=== PATIENT | female | born 2000 | race Caucasian/White ===

== ENCOUNTER 2023-12-05 16:18 | Inpatient (IN) | payer OTHER ==
[2023-12-05 17:24] VITALS: BMI 27.7
[2023-12-05] MEDS ORDERED: chlordiazePOXIDE HCL 25 MG CAPSULE PO PRN (17:43)
[2023-12-05] MEDS ORDERED: BENZONATATE 200 MG CAPSULE PO PRN (17:48)
[2023-12-05] MEDS ORDERED: IBUPROFEN 400 MG TABLET (FP) PO PRN (17:48)
[2023-12-05] MEDS ORDERED: guaiFENesin 600 MG TABLET.ER (FP) PO PRN (17:48)
[2023-12-05] MEDS ORDERED: hydrOXYzine PAMOATE 25 MG CAPSULE (FP) PO PRN (17:48)
[2023-12-05] MEDS ORDERED: POLYETHYLENE GLYCOL (HEALTHYLAX) 3350 17 GM PACKET PO PRN (17:48)
[2023-12-05] MEDS ORDERED: MAG HYDROX/AL HYDROX/SIMETH 30 ML UNIT-DOSE CUP PO PRN (17:48)
[2023-12-05] MEDS ORDERED: BISMUTH SUBSALICYLATE 524 MG/30 ML PO PRN (17:48)
[2023-12-05] MEDS ORDERED: IBUPROFEN 600 MG TABLET (FP) PO PRN (17:48)
[2023-12-05] MEDS ORDERED: MAGNESIUM HYDROX 2400MG/30ML ORAL SUSPENSION 30 ML CUP PO PRN (17:48)
[2023-12-05] MEDS ORDERED: LOPERAMIDE HCL 2 MG CAPSULE PO PRN (17:48)
[2023-12-05] MEDS ORDERED: DICYCLOMINE HCL 10 MG CAPSULE PO PRN (17:48)
[2023-12-05] MEDS ORDERED: BENZOCAINE/MENTHOL (CHLORASEPTIC ) LOZENGE MM PRN (17:48)
[2023-12-05] MEDS ORDERED: chlordiazePOXIDE HCL 25 MG CAPSULE ONE (18:22)
[2023-12-05] MEDS: chlordiazePOXIDE HCL 25 MG CAPSULE PO SCH (18:26)
[2023-12-05] MEDS: ONDANSETRON *ODT* 4 MG TABLET SL PRN (20:14)
[2023-12-05] MEDS: THIAMINE 100 MG TABLET PO SCH (22:26)
[2023-12-05] MEDS: MELATONIN 5 MG TABLETS PO SCH (22:26)
[2023-12-06] MEDS: PRENATAL VITAMINS W/ FOLIC ACID TABLET (FP) PO SCH (10:12)
[2023-12-06 11:49] LABS: POTASSIUM 3.9 mmol/L (3.5-5.1)
[2023-12-06 11:54] LABS: HEMATOCRIT 34.2 % (32.4-45.2); HEMOGLOBIN 11.4 GM/dL (10.7-15.3); MCH 30.1 pg (25.7-33.7); MCHC 33.2 g/dl (32.0-36.0); MEAN CELL VOLUME 90.6 fl (80-96); MEAN PLT VOLUME 7.4 fl (7.5-11.1); PLATELET COUNT 381 10^3/uL (134-434); RBC 3.78 M/mm3 (3.60-5.2); RDW 13.8 % (11.6-15.6); WHITE BLOOD COUNT 4.9 K/mm3 (4.0-10.0)
[2023-12-06 11:55] LABS: BLOOD UREA NITROGEN 7.4 mg/dL (7-18); CALCIUM 9.1 mg/dL (8.5-10.1)
[2023-12-06 11:56] LABS: ALBUMIN 3.4 g/dl (3.4-5.0); BILIRUBIN,TOTAL 0.6 mg/dL (0.2-1); TOT PROT 6.4 g/dl (6.4-8.2)
[2023-12-06 11:59] LABS: CREATININE 0.7 mg/dL (0.55-1.3)
[2023-12-06] MEDS: ACAMPROSATE CALCIUM 333 MG TABLET.DR PO SCH (14:31)
[2023-12-06] MEDS: ACETAMINOPHEN 325 MG TABLET (FP) PO PRN (21:26)
[2023-12-06] MEDS: METHOCARBAMOL 500 MG TABLET PO PRN (22:54)
[2023-12-07] MEDS: chlordiazePOXIDE HCL 25 MG CAPSULE PO SCH (05:45)
[2023-12-07] MEDS ORDERED: chlordiazePOXIDE HCL 10 MG CAPSULE PO PRN (09:14)
[2023-12-07] MEDS: SERTRALINE HCL 50 MG TABLET (FP) PO SCH (12:24)
[2023-12-07] MEDS: chlordiazePOXIDE HCL 10 MG CAPSULE PO SCH (17:40)
[2023-12-08] MEDS ORDERED: chlordiazePOXIDE HCL 10 MG CAPSULE PO PRN
[2023-12-08] MEDS: chlordiazePOXIDE HCL 10 MG CAPSULE PO SCH (06:14)
[2023-12-08 09:56] VITALS: RESP 16
[2023-12-08] MEDS: chlordiazePOXIDE 5 MG CAPSULE PO SCH (17:18)
[2023-12-08 18:03] VITALS: BP 118/67; PULSE 75; TEMP 97.1
[2023-12-09] MEDS ORDERED: chlordiazePOXIDE HCL 10 MG CAPSULE PO SCH (05:00)
[2023-12-10] MEDS ORDERED: chlordiazePOXIDE HCL 10 MG CAPSULE PO ONE (05:00)
== END 2023-12-08 18:14 | disposition home or self-care (01) | DRG 775 ==
LOC: YASAS 16:18 → Y6N 18:07
PROVIDERS: ADMIT Allergy & Immunology; ATTEND Surgery
PROC: HZ2ZZZZ Detoxification Services for Substance Abuse Treatment (ICD-10-PCS; principal; 2023-12-05)
DX: F10.230 Alcohol dependence with withdrawal, uncomplicated (principal); F33.1 Major depressive disorder, recurrent, moderate; F10.280 Alcohol dependence with alcohol-induced anxiety disorder; F10.24 Alcohol dependence with alcohol-induced mood disorder; Z62.810 Personal history of physical and sexual abuse in childhood
CPT/HCPCS: 36415; 80053; 80305; 80307; 85027; 86780; 93005; 93010; Q0162